=== PATIENT | male | born 2000 | race Caucasian/White ===

== ENCOUNTER 2024-04-18 14:14 | Emergency (ER) | payer OTHER ==
[~2024-04-18] VITALS: Ht 177.8 cm; Wt 70.3 kg
[2024-04-18 14:24] VITALS: BP_SYST 125; PULSE 85; RESP 18; TEMP 98.3; O2SAT 98
[2024-04-18 15:46] LABS: BILIRUBIN,URINE NEGATIVE (NEGATIVE); BLOOD, URINE NEGATIVE (NEGATIVE); COLOR,URINE YELLOW (YELLOW); GLUCOSE,URINE NEGATIVE (NEGATIVE); KETONES,URINE NEGATIVE (NEGATIVE); LEUKOCYTE ESTERASE ,URINE TRACE (NEGATIVE); NITRITE, URINE NEGATIVE (NEGATIVE); PROTEIN URINE NEGATIVE (NEGATIVE); UROBILINOGEN,URINE 0.2 (0.2-1.0)
[2024-04-18 15:56] LABS: CLARITY/URINE SLIGHTLY HAZY (CLEAR)
[2024-04-18 16:35] LABS: BACTERIA,URINE FEW /HPF (None Seen); MUCUS,URINE None Seen /LPF (None Seen); RBC,URINE 0-3 /HPF (0-3); WBC,URINE 20-50 /HPF (0-3)
[2024-04-18] MEDS ORDERED: DOXY100C5 PO (17:19)
[2024-04-18] MEDS: cefTRIAXone 1 GM VIAL IM ONE (17:54)
[2024-04-18 17:56] VITALS: BP_SYST 125; PULSE 85; RESP 18; TEMP 98.3; O2SAT 98
[2024-04-19 09:57] LABS: NEISSERIA GONORRHOEAE PCR Detected (NOTdetected)
== END 2024-04-18 17:54 | disposition home or self-care (01) ==
LOC: SED 14:14
DX: N34.2 Other urethritis (principal); Z79.2 Long term (current) use of antibiotics
CPT/HCPCS: 99283; 81001; 87086; 36415; 96372; 87491; J0696; 81000; 81015